=== PATIENT | male | born 1960 | race Caucasian/White ===

== ENCOUNTER 2021-06-11 16:49 | Emergency (ER) | payer MEDICAID, OTHER ==
[~2021-06-11] VITALS: Ht 167.6 cm; Wt 63.5 kg
[2021-06-11 17:24] VITALS: BP 136/80
--- NOTE | 2021-06-11 18:51 | NUR ---
Patient discharged to home in stable condition. Written and verbal after care instructions given. Patient verbalizes understanding of instruction.
== END 2021-06-11 18:53 | disposition home or self-care (01) ==
LOC: ER 16:52
DX: S61.210A Laceration without foreign body of right index finger without damage to nail, initial encounter (principal); I10 Essential (primary) hypertension; W26.0XXA Contact with knife, initial encounter; Y93.89 Activity, other specified; Y92.89 Other specified places as the place of occurrence of the external cause; Y99.8 Other external cause status

== ENCOUNTER 2022-04-29 05:35 | Emergency (ER) | payer MEDICAID ==
[~2022-04-29] VITALS: Ht 167.6 cm; Wt 65.8 kg
--- NOTE | 2022-04-29 07:10 | NUR ---
BIBS FOR RIGHT HAND PAIN NO TRUAMA NOTED
[2022-04-29] MEDS ORDERED: INDOMETHACIN 25 MG CAPSULE PO ONE (08:00)
[2022-04-29] MEDS ORDERED: INDOMETHACIN 25 MG CAPSULE ONE (08:18)
[2022-04-29] MEDS ORDERED: NAPR500T6 PO (09:35)
[2022-04-29 09:44] VITALS: BP 117/72
--- NOTE | 2022-04-29 09:44 | NUR ---
Patient discharged to home in stable condition. Written and verbal after care instructions given. Patient verbalizes understanding of instruction.
[2022-04-29] MEDS ORDERED: KETOROLAC TROMETHAMINE INJ 60 MG/2 ML VIAL IM ONE (10:00)
== END 2022-04-29 09:45 | disposition home or self-care (01) ==
LOC: ER 05:45
DX: M19.031 Primary osteoarthritis, right wrist (principal); M25.531 Pain in right wrist; I10 Essential (primary) hypertension; Z79.1 Long term (current) use of non-steroidal anti-inflammatories (NSAID)
CPT/HCPCS: 36415; 73110; 84550-TC

== ENCOUNTER 2023-04-02 22:34 | Emergency (ER) | payer MEDICAID ==
[~2023-04-02] VITALS: Ht 170.2 cm; Wt 63.5 kg
[~2023-04-02 22:34] MED LIST: NAPR500T6 PO
[2023-04-02] MEDS ORDERED: MORPHINE SULFATE INJ 2 MG/ML DISP.SYRIN IV ONE (23:30)
[2023-04-02] MEDS ORDERED: MORPHINE SULFATE INJ 4 MG/ML DISP.SYRIN ONE (23:35)
[2023-04-03 00:04] LABS: BASOPHILS # (AUTO) 0.1 K/uL (0.0-0.2); BASOPHILS % (AUTO) 0.7 % (0.0-2.0); EOSINOPHILS # (AUTO) 0.5 K/uL (0.0-0.7); HEMATOCRIT 41 % (39-51); HEMOGLOBIN 14.2 g/dL (13.5-17.5); LYMPHOCYTES # (AUTO) 3.7 K/uL (0.8-4.8); LYMPHOCYTES % (AUTO) 40.5 % (20.0-44.0); MEAN CORPUSCULAR HEMOGLOBIN 30 PG (26.0-33.0); MEAN CORPUSCULAR HGB CONC 35 g/dl (31.0-36.0); MEAN CORPUSCULAR VOLUME 88 fL (80-96); MONOCYTES # (AUTO) 0.8 K/uL (0.1-1.30); MONOCYTES % (AUTO) 9.2 % (2.0-12.0); NEUTROPHILS % (AUTO) 43.6 % (43.0-81.0); PLATELET COUNT (AUTO) 241 K/uL (150-450); RED BLOOD CELL COUNT(AUTO) 4.66 MIL/uL (4.5-6.0); RED CELL DISTRIBUTION WIDTH 13.4 % (11.5-15.0); WHITE BLOOD COUNT (AUTO) 9.1 K/uL (4.3-11.0)
[2023-04-03 00:07] LABS: APPEARANCE,URINE CLEAR (CLEAR); BILIRUBIN,URINE NEGATIVE (NEGATIVE); BLOOD, URINE NEGATIVE Ery/uL (NEGATIVE); COLOR,URINE YELLOW (YELLOW); KETONES,URINE NEGATIVE (NEGATIVE); LEUKOCYTE ESTERASE ,URINE NEGATIVE (NEGATIVE); NITRITE, URINE NEGATIVE (NEGATIVE); PROTEIN,URINE NEGATIVE (NEGATIVE); UGLUCOSE NEGATIVE (NEGATIVE); UROBILINOGEN,URINE 0.2 EU/dL (0.2)
[2023-04-03 00:16] LABS: CALCIUM, SERUM 9.7 mg/dL (8.5-10.1); CREATININE 0.7 mg/dL (0.6-1.3); POTASSIUM 4.1 mmol/L (3.5-5.1)
[2023-04-03 00:36] LABS: ALBUMIN 3.8 g/dL (3.4-5.0); BILIRUBIN,DIRECT 0.1 mg/dL (0.0-0.2); BILIRUBIN,TOTAL 0.2 mg/dL (0.2-1.0); TOTAL PROTEIN, SERUM 7.5 g/dL (6.4-8.2)
[2023-04-03] MEDS ORDERED: METR-147 PO (01:04)
[2023-04-03] MEDS ORDERED: CIPR-262 PO (01:04)
[2023-04-03] MEDS ORDERED: CIPROFLOXACIN HCL 500 MG TABLET ONE (01:08)
[2023-04-03] MEDS ORDERED: METRONIDAZOLE 500 MG TABLET ONE (01:08)
[2023-04-03 01:15] VITALS: BP 138/79; TEMP 98.2; O2SAT 100
[2023-04-03] MEDS ORDERED: METRONIDAZOLE 500 MG TABLET PO ONE (01:30)
[2023-04-03] MEDS ORDERED: CIPROFLOXACIN HCL 250 MG TABLET PO ONE (01:30)
== END 2023-04-03 01:16 | disposition home or self-care (01) ==
LOC: ER 22:37
DX: K52.9 Noninfective gastroenteritis and colitis, unspecified (principal); R10.9 Unspecified abdominal pain; I10 Essential (primary) hypertension; F17.200 Nicotine dependence, unspecified, uncomplicated
CPT/HCPCS: 99285; 74176; 96374; 85025; 80048; 83690; 80076; 81003; 36415; J2270

== ENCOUNTER 2023-11-21 08:58 | Emergency (ER) | payer MEDICAID ==
[~2023-11-21] VITALS: Ht 165.1 cm; Wt 64.4 kg
[~2023-11-21 08:58] MED LIST changes: +CIPR-262 PO; +METR-147 PO
[2023-11-21] MEDS: IBUPROFEN 400 MG TABLET PO ONE (09:30)
[2023-11-21] MEDS ORDERED: IBUPROFEN 400 MG TABLET ONE (09:39)
[2023-11-21 11:14] VITALS: BP 144/91; TEMP 98.2; O2SAT 98
== END 2023-11-21 11:14 | disposition home or self-care (01) ==
LOC: ER 09:10
DX: M79.641 Pain in right hand (principal); I10 Essential (primary) hypertension; F17.200 Nicotine dependence, unspecified, uncomplicated
CPT/HCPCS: 73130-TC

== ENCOUNTER 2024-04-17 20:09 | Emergency (ER) | payer MEDICAID ==
[~2024-04-17] VITALS: Ht 170.2 cm; Wt 63.5 kg
[2024-04-17 23:49] VITALS: BP 135/77; TEMP 97.7; O2SAT 97
== END 2024-04-18 00:37 | disposition home or self-care (01) ==
LOC: ER 20:48
DX: S69.82XA Other specified injuries of left wrist, hand and finger(s), initial encounter (principal); I10 Essential (primary) hypertension; F17.200 Nicotine dependence, unspecified, uncomplicated; X58.XXXA Exposure to other specified factors, initial encounter; Y93.89 Activity, other specified; Y92.89 Other specified places as the place of occurrence of the external cause; Y99.8 Other external cause status